=== PATIENT | male | born 1970 | race Caucasian/White ===

== ENCOUNTER → 2023-01-20 | Day surgery (SDC) | payer OTHER ==
[2023-01-19 14:54] LABS: BASOPHILS # (AUTO) 0.1 (0.0-0.1); BASOPHILS % 0.8 % (0.0-1.0); EOSINOPHILS # (AUTO) 0.2 (0.0-0.4); EOSINOPHILS % 1.7 % (0.0-6.0); HEMATOCRIT 45.4 % (38.2-49.6); HEMOGLOBIN 14.7 g/dL (14.0-18.0); LYMPHOCYTES # (AUTO) 1.5 (1.0-3.2); MEAN CORPUSCULAR HEMOGLOBIN 28.2 pg (28-32); MEAN CORPUSCULAR HGB CONC 32.4 g/dL (31-35); MONOCYTES # (AUTO) 0.6 (0.2-0.8); MONOCYTES % 6.9 % (4.4-11.3); NEUTROPHILS # (AUTO) 6.9 (2.1-6.9); NEUTROPHILS % 74.3 % (38.7-80.0); PLATELET COUNT 227 x10e3/uL (140-360); RED BLOOD COUNT 5.22 x10e6/uL (4.3-5.7); RED CELL DISTRIBUTION WIDTH 13.5 % (11.7-14.4)
[2023-01-19 15:08] LABS: INR 0.93; PARTIAL THROMBOPLASTIN TIME 27.1 seconds (23.8-35.5); PROTHROMBIN TIME 12.7 seconds (11.9-14.5)
[2023-01-19 15:13] LABS: ANION GAP 14.8 mmol/L (8-16); CREATININE, SERUM 1.75 mg/dL (0.72-1.25); POTASSIUM 3.8 mmol/L (3.5-5.1)
[~2023-01-20] MED LIST: AMLODIPINE BESYL5 MG PO; ATORVASTATIN CA20 MG PO; BUPIVACAINE HCL 0.5% INJ 30 ML VIAL INJ ONE; CEFAZOLIN SODIUM 2 GM ONE; CLONIDINE HCL0.1 MG PO; DEXAMETHASONE SOD PHOS INJ 4 MG/ML SDV ONE; EPINEPHRINE 1 MG/ML 30ML VIAL ONE; EYE LUBRICANT OPTH OINT 3.5GM TUBE OP ONE; FAMOTIDINE 20 MG/2 ML VIAL IV ONE; FENTANYL CITRATE/PF 100MCG/2 ML INJ ONE; FLUOXETINE HCL20 MG PO; LIDOCAINE HCL 2% LOCAL INJ 5 ML SDV VIAL INJ ONE; LISINOPRIL2.5 MG PO; MIDAZOLAM HCL 2 MG/2 ML VIAL ONE; MOUNJARO7.5 MG/0.5; ONDANSETRON HCL INJ 2MG/ML 2ML 2 MG/ML VIAL ONE; PHENYLEPHRINE HCL 1% 10 MG/ML VIAL ONE; POVIDONE IODINE 0.05% 0.05 % ML PO ONE; PREDNISONE5 MG PO; PROGRAF1 MG PO; PROPOFOL IV EMULSION 10 MG/ML 20 ML VIAL ONE; SEVOFLURANE INHAL SOLN 250 ML PEN BTL ONE; SODIUM CHLORIDE 0.9% 100 ML ONE; TACROLIMUS1 MG PO; TOUJEO MAX300 UNIT/1
[2023-01-20 10:30] VITALS: BP 130/79
== END | disposition home or self-care (01) ==
LOC: OR 07:25
PROVIDERS: ATTEND Orthopaedic Surgery
DX: M75.121 Complete rotator cuff tear or rupture of right shoulder, not specified as traumatic (principal); M75.41 Impingement syndrome of right shoulder; M75.51 Bursitis of right shoulder; G47.33 Obstructive sleep apnea (adult) (pediatric); E11.22 Type 2 diabetes mellitus with diabetic chronic kidney disease; I12.0 Hypertensive chronic kidney disease with stage 5 chronic kidney disease or end stage renal disease; N18.6 End stage renal disease; Z94.0 Kidney transplant status; E78.5 Hyperlipidemia, unspecified; Z01.810 Encounter for preprocedural cardiovascular examination; Z01.812 Encounter for preprocedural laboratory examination; Z79.4 Long term (current) use of insulin; Z79.899 Other long term (current) drug therapy; Z86.73 Personal history of transient ischemic attack (TIA), and cerebral infarction without residual deficits
CPT/HCPCS: 29826; 29827; 36415 ×2; 80048; 82948; 85025; 85610; 85730; 93005; C1713 ×3; J1100; J2001; J2250; J2370; J2405; J2704; J3010; J7050